=== PATIENT | female | born 1980 | race Caucasian/White ===

== ENCOUNTER 2017-05-08 06:18 | Day surgery (SDC) | payer OTHER ==
[2017-05-07 11:49] VITALS: BMI 23.3
--- NOTE | 2017-05-07 19:28 | PREOPHP ---
DATE OF ADMISSION: 05/08/2017 Date of operation is scheduled for 05/08/2017. HISTORY OF PRESENT ILLNESS: Ms. Wendy Beckman is a 37-year-old, 4, para 4, desires permanent surgical sterilization. PAST MEDICAL HISTORY: None. MEDICATIONS: None. PAST SURGICAL HISTORY: Cholecystectomy. OBSTETRICAL HISTORY: x4 vaginal delivery, last delivery was on February 27, 2017. GYNECOLOGIC HISTORY: Twelve, regular, 34 days. Denies any sexually transmitted disease. Sexually active with 1 partner. SOCIAL HISTORY: Denies any smoking, drugs, or alcohol. FAMILY HISTORY: None. REVIEW OF SYSTEMS: All within normal, except History of Present Illness. PHYSICAL EXAMINATION: HEENT: Within normal limits. LUNGS: . CARDIAC: S1, S2. Regular rhythm. ABDOMEN: Soft, nontender. Negative. EXTREMITIES: Negative edema. No calf tenderness. VAGINAL EXAM: Normal external genitalia. Cervix negative. negative lesions. Adnexa: Negative mass, nontender bilateral. Fundus within normal limits. ASSESSMENT: Multiparous, desires permanent surgical sterilization. PLAN: Consent for hysteroscopic tubal occlusion by Essure implant, with possible laparoscopic bilateral tubal sterilization. Again risks, benefits, and alternatives explained. All questions were answered. Dictated By: Vamsi Lazaro MD /[email or web address]/elaine /Document#: [id number]
[~2017-05-08] VITALS: Ht 162.6 cm; Wt 64.5 kg
[2017-05-08] VITALS (9 sets, daily range): BP systolic 92–112; BP diastolic 49–62; PULSE 60–66; RESP 11–41; Ht 162.6 cm; Wt 64.5 kg
[2017-05-08] MEDS ORDERED: METOCLOPRAMIDE 10 MG INJ ONE (07:39)
[2017-05-08] MEDS ORDERED: PROPOFOL 20 ML ONE (07:39)
[2017-05-08] MEDS ORDERED: FENTAnyl 50 MCG/ML VIAL ONE (07:39)
[2017-05-08] MEDS ORDERED: KETOROLAC 30 MG INJ ONE (07:39)
[2017-05-08] MEDS ORDERED: MIDAZOLAM 1 MG/ML 2 ML INJ ONE (07:39)
[2017-05-08 08:08] LABS: BASOPHILS % 0.5 % (0.0-2.0); EOSINOPHILS # 0.2 10^3/ul (0.0-0.5); EOSINOPHILS % 2.7 % (0.0-7.0); HEMATOCRIT 41.3 % (37.0-47.0); HEMOGLOBIN 13.6 g/dl (12.0-16.0); LYMPHOCYTES # 2.4 10^3/ul (0.8-2.9); LYMPHOCYTES % 39.2 % (15.0-51.0); MEAN CORPUSCULAR HEMOGLOBIN 27.6 pg (29.0-33.0); MEAN CORPUSCULAR HGB CONC 32.9 g/dl (32.0-37.0); MEAN CORPUSCULAR VOLUME 83.8 fl (82.0-101.0); MEAN PLATELET VOLUME 11.8 fl (7.4-10.4); MONOCYTE # 0.4 10^3/ul (0.3-0.9); MONOCYTES % 6.8 % (0.0-11.0); NEUTROPHILS % 49.5 % (39.0-77.0); PLATELET COUNT 178 10^3/UL (140-415); RED BLOOD COUNT 4.93 10^6/ul (4.20-5.40); RED CELL DISTRIBUTION WIDTH 13.2 % (11.5-14.5)
--- NOTE | 2017-05-08 08:37 | SIPON ---
Date/Time of Note Date/Time of Note DATE: 05/08/17 TIME: 08:34 Operative Report Preoperative Diagnosis Multiparity desires permanent surgical sterilization Postoperative Diagnosis Same Operation/Procedure Performed Hysteroscopic bilateral tubal occlusion by Essure implant Surgeon: ROCCO FLYNN MD Anesthesia Type: general Estimated Blood Loss: minimal Transfusion Required: no Specimen: none Grafts/Implants Lot number [id number] Complications: no ROCCO FLYNN MD May 08, 2017 08:36
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
[2017-05-08] MEDS ORDERED: ONDANSETRON 4 MG INJ IV PRN (09:00)
[2017-05-08] MEDS ORDERED: HYDROmorphONE (0.2 MG/ML) 10ML SYG IV PRN (09:00)
--- NOTE | 2017-05-09 14:32 | OPR ---
DATE OF OPERATION: 05/08/2017 PREOPERATIVE DIAGNOSIS: Multiparity, desires permanent surgical sterilization. POSTOPERATIVE DIAGNOSIS: Multiparity, desires permanent surgical sterilization. OPERATION PERFORMED: Hysteroscopic tubal occlusion by Essure implants. SURGEON: Vamsi Lazaro MD WIRE BENDER HAND: None. OPERATIVE FINDINGS AT SURGERY: Bimanual sides within normal position, anteverted. Hysteroscopic view of the uterus adequate, ostia normal. Adhesions absent. Placement coils; 3 trailing coils on the left and 3 trailing coils on the right. ESTIMATED BLOOD LOSS: Minimal. SPECIMEN: None. COMPLICATIONS: None. ANESTHESIA: General. OPERATIVE PROCEDURE: Procedure after explaining the risks, benefits, and alternatives and consent signed in the chart, the patient was taken to the operating room, where general anesthesia was obtained without difficulty. The patient was examined under anesthesia and found to have a small anteverted uterus with normal adnexa. She was then placed in dorsal lithotomy position and prepared and draped in a normal sterile fashion. A heavy weighted speculum was then placed in the patient's vagina and the anterior lip of the cervix was grasped with a single-tooth tenaculum. A hysteroscope was then entered into the uterine cavity and the findings noted above. Both tubal ostia were identified. The delivery catheter was then inserted into the tubal ostia, up to the black marker. The delivery catheter was retracted and device deployed. After 10 seconds the catheter was detached from the device. The device was in good position with 3 trailing coils on the right side. The procedure was repeated on the left side with 3 trailing coils. The procedure was completed. All instruments were removed from the patient's vagina. The patient tolerated procedure well. All counts were correct x2. Before discharge the patient was given a prescription for hysterosalpingogram in 3 months. Patient advised to use contraception until it tubal occlusion is confirmed by a hysterosalpingogram. Dictated By: Vamsi Lazaro MD /[email or web address]/juan manuel /Document#: [id number]
== END 2017-05-08 10:22 | disposition home or self-care (01) ==
LOC: SDS 06:18
PROVIDERS: ATTEND Obstetrics & Gynecology
DX: Z30.2 Encounter for sterilization (principal)
CPT/HCPCS: 58565; 85025; 86850; 86900; 86901; A4264; J1885; J2250; J3010; Z7512; Z7610; J2765